=== PATIENT | male | born 1985 | race Caucasian/White ===

== ENCOUNTER 2021-03-23 06:32 | Day surgery (SDC) | payer OTHER, SELFPAY ==
[2021-03-11 08:18] VITALS: BMI 30.4
[2021-03-23] VITALS (10 sets, daily range): BP systolic 115–158; BP diastolic 39–80; PULSE 51–78; RESP 9–16; TEMP 36.2–36.7; O2SAT 92–99; BMI 30.4
--- NOTE | 2021-03-23 | PATH_ITS ---
[facility] Accession Number: [id number] . 01 Material submitted: . gallbladder - GALLBLADDER . 02 Diagnosis: Gallbladder, Cholecystectomy: Gallbladder with cholesterolosis and cholelithiasis. MRV 03/25/2021 1036 Local . 02 Electronically signed: . Linda Bustillo MD, Pathologist NPI- [id number] . 01 Gross description: . The specimen is received in formalin, labeled gallbladder and consists of a 9.5 x 3.5 x 3.0 cm intact gallbladder with a 0.4 cm in diameter cystic duct. The serosa is montes de oca-green and smooth. Opening reveals green viscous bile with multiple back bosselated choleliths ranging from 0.1-1.3 cm. The mucosa is green and velvety, and the wall thickness measures 0.1 cm. Meter Calibrator sections are submitted, to include the en face cystic duct margin (blue) in cassette A1. ([id number]) /MRV 03/24/2021 1251 Local . 02 Pathologist provided ICD-10: K80.70 . 02 CPT . 670939 Performed at: 01 [facility] [address] [facility], [place], [place] [id number] MD William Gomez MD Phone: [phone] Performed at: 02 [facility] [address] [place], [place] [id number] MD Luba Arguelles MD Phone: [phone]
--- NOTE | 2021-03-23 | DI.RAD.S_ITS ---
PROCEDURE: XR CHOLANGIOGRAM OPERATIVE INDICATIONS: CHOLECYSTECTOMY COMPARISON: None. FINDINGS: Biliary ducts: The surgeon injected contrast into the biliary ducts after cannulation of the cystic duct stump. Visualized intra- and extrahepatic bile ducts are normal in caliber, without strictures. Multiple intraluminal filling defects noted which could represent injected air bubbles or choledocholithiasis. No evidence for iatrogenic ductal injury. Duodenum: Contrast flows promptly through the sphincter of Oddi into the duodenum, which appears normal in caliber. IMPRESSION: Multiple small filling defects in the common bile duct which could represent injected air bubbles or choledocholithiasis. Dictated by: Ira Sterling MD, PhD on 03/24/2021 at 13:20 Approved by: Ira Sterling MD, PhD on 03/24/2021 at 13:21
[2021-03-23] MEDS: LACTATED RINGERS 1,000 ML 42 ML IV (07:30)
--- NOTE | 2021-03-23 07:31 | PM.PREOP ---
Pre-operative Note COVID-19 COVID-19 status: Negative Result date/Date tested (Pos, Neg/Pending): 03/23/21 Interval Note History & Physical reviewed/Exam performed by Physician: Yes Changes to H&P: No ASA Class (for procedural sedation): II
[2021-03-23 08:00] LABS: COVID19 -Nasal RAPID Negative (Negative)
[2021-03-23] MEDS: CEFAZOLIN 2 GM/20 ML SYRINGE IV (08:28)
--- NOTE | 2021-03-23 08:35 | SUR.OPER ---
Supine on padded OR bed, head on pillow, arms padded and tucked at sides, legs uncrossed, safety belt at thigh, tape over blanket over lower legs .
[2021-03-23] MEDS: BUPIVACAINE 0.5% (PF) VIAL 30 ML INJ (08:43)
[2021-03-23] MEDS: LIDOCAINE 1% W/EPI 20 ML INJ (08:44)
[2021-03-23] MEDS: IOPAMIDOL 15 ML VIAL INJ (09:11)
[2021-03-23] MEDS: LACTATED RINGERS 1,000 ML 125 ML IV (09:39)
--- NOTE | 2021-03-23 09:56 | PM.OP.1 ---
Operative Date/Time/Diagnoses Date of procedure: 03/23/21 Time of procedure: 09:56 Pre-op diagnosis: Gallstones Post-op diagnosis: same Procedure & Clinicians Procedure: Laparoscopic cholecystectomy with intraoperative cholangiogram Same procedure as scheduled: Yes Indications: Gallstones Surgeon: Piyush Huston Click Yes if Unassisted: Yes Anesthesia Type: General Operative Notes Estimated Blood Loss (mL): 25 Blood products transfused: none Procedure in detail: The patient was given preoperative antibiotic. The patient was brought to the operating room, placed on the table in the supine position. General endotracheal anesthesia was induced. The abdomen was prepped and draped. A time-out was performed. We made a 1 cm infraumbilical incision. We dissected down to the base of the umbilical stalk using cautery. We grasped the umbilical stalk with a Tierra clamp to elevate the abdominal wall. We scored the fascia in the midline with cautery 1 cm. We pierced the peritoneum with a Peon clamp. The Eva port was placed and the abdomen was insufflated to 15 mmHg. A 12 mm 30 degree laparoscopic was inserted. There was no evidence of any injury from the entry. Next, we placed 5 mm ports in the subxiphoid position and right upper quadrant at the midclavicular line and anterior axillary line. Patient was then positioned in reverse Trendelenburg and the table was tilted to the left. The gallbladder was grasped at the dome and retracted cephalad. There were some adhesions of mesenteric tissue to the right liver which were carefully dissected with cautery to allow full retraction of the gallbladder. We then dissected the cystic structures with a combination of hook cautery and blunt dissection. We obtained a critical view. We then performed a cholangiogram with the Sosa port using a ureteral catheter. One of the syringes became disconnected during the cholangiogram allowing some air bubbles into the system. We performed a cholangiogram which showed the expected anatomy with good flow of contrast into the duodenum and up to the hepatic bifurcation. The air bubbles were visible and remained in the common duct despite flushing with 15 mL of saline and repeating the cholangiogram. We then removed the cholangiocatheter. We placed hemoclips on the cystic duct and artery and divided the cystic duct and artery sharply between the clips. The gallbladder was then dissected off the liver and placed in a specimen retrieval bag. We irrigated the right upper quadrant and all the aspirate returned clear. We then removed the 5 mm ports under direct vision we removed the Eva port. We then injected some local into the fascia and closed the fascia with 2 interrupted 0 Vicryl sutures. The skin incisions were closed with 4 Monocryl and Steri-Strips were applied. Band-Aids were applied over the Steri-Strips. Specimen: Gallbladder Post-operative Condition: stable Disposition: PACU
[2021-03-23] MEDS: OXYCODONE IR 5 MG TABLET PO ×2 (10:15→10:26)
[2021-03-23] MEDS: fentaNYL 100 MCG/2 ML INJ IV (10:42)
--- NOTE | 2021-03-31 16:52 | PM.HP.1 ---
History of Present Illness History of Present Illness Date Patient Seen: 03/23/21 Time Patient Seen: 07:45 Chief complaint: SDC Narrative: The patient is a 35-year-old man with gallstones. He has been to the emergency department twice for biliary colic. He reported upper abdominal pain. Patient History Medical History (Updated 03/11/21 @ 08:21 by Ashley Bowman RN) Eczema Gallstones Headache, migraine Surgical History (Updated 03/11/21 @ 08:21 by Ashley Bowman RN) H/O left wrist surgery (2008) H/O vasectomy H/O wisdom tooth extraction (2003) Hx of appendectomy (1995) Hx of tonsillectomy (1988) Family & Social History Family History (Updated 02/02/21 @ 14:21 by Lily Ray RN) Father Cancer Grandfather Diabetes mellitus Social History: household members spouse,children Tobacco & Substance use: Smoking Status Former smoker alcohol intake never Substance Use Type does not use Meds Home Medications and Allergies Home Medications Medication Instructions Recorded Confirmed Type ascorbic acid (vitamin C) 1,000 mg 1,000 mg PO DAILY 03/11/21 03/23/21 History tablet (Vitamin C) glucosamine-chondroitin 250 mg-200 2 tab PO DAILY 03/11/21 03/23/21 History mg tablet (Osteo Bi-Flex) omega 5-mzu-fai-fish oil 1,000 mg 2 cap PO DAILY 03/11/21 03/23/21 History (120 mg-180 mg) capsule (Fish Oil) omeprazole 40 mg capsule,delayed 40 mg PO DAILY 03/11/21 03/23/21 History release hydrocodone 5 mg-acetaminophen 325 1 tab PO Q6H PRN #8 tab 03/23/21 Rx mg tablet oxycodone 5 mg tablet 5 mg PO Q8H PRN #8 tab 03/23/21 Rx Allergies Allergy/AdvReac Type Severity Reaction Status Date / Time No Known Drug Allergies Allergy Verified 03/23/21 07:06 Exam Vital Signs (past 8 hours): Oxygen Delivery Method Room Air Oxygen Flow Rate 3 Const General: healthy appearing HENMT Head: normal to inspection Eyes General: appearance normal, both eyes and all related structures Resp Effort & Inspection: normal respiratory effort GI Palpation: soft and No hernia Assessment & Plan Assessment and plan (1) Gallstones: Status: Acute Plan Reviewed the risks and benefits of laparoscopic cholecystectomy and he would like to proceed. Time Spent With Patient Critical Care time: I spent a total of [] minutes of critical care time on this patient's care today; this time is exclusive of procedural time.
== END 2021-03-23 11:19 | disposition home or self-care (01) ==
PROVIDERS: Referring Provider Surgery; Visit Provider Surgery
PROC: 0FT44ZZ Resection of Gallbladder, Percutaneous Endoscopic Approach (ICD-10-PCS; CPT 47562; principal; 2021-03-23 07:45)
DX: K80.20 Calculus of gallbladder without cholecystitis without obstruction (principal); Z20.822 Contact with and (suspected) exposure to COVID-19; K21.9 Gastro-esophageal reflux disease without esophagitis
CPT/HCPCS: 47563; 74018; 74300; 76000; 87635; J0690; J1100; J2405; J2704; J3010

== ENCOUNTER → 2022-03-25 10:51 | Outpatient (CLI) | payer OTHER, SELFPAY ==
--- NOTE | 2022-03-25 | DI.RAD.S_ITS ---
PROCEDURE: FL SHOULDER INJECTION MR/CT RT INDICATIONS: PAIN IN RIGHT SHOULDER COMPARISON: [facility], MR, MR SHOULDER RT W CON, 03/25/2022, 11:35. TECHNIQUE: The indications, alternatives, benefits, risks, and complications of the procedure were explained to the patient. Written informed consent was obtained and placed in the chart. The shoulder was examined fluoroscopically and a site for needle placement chosen for entry into the glenohumeral joint from an anterior approach. The skin was prepped and draped in a sterile fashion, and 1% lidocaine infiltrated from skin down to joint capsule. A spinal needle was inserted into the glenohumeral joint, and a small amount of iodinated contrast media injected to confirm intra-articular placement of the needle tip. This was followed by approximately 12 mL dilute solution of a gadolinium containing MR contrast agent. The needle was removed and a dressing was applied. The patient was given postprocedural instructions and sent to the MR suite for MR imaging. FINDINGS: A single fluoroscopic spot image demonstrates intra-articular location of injected iodinated contrast. IMPRESSION: Successful fluoroscopically guided administration of dilute Gadolinium solution into the shoulder joint for MR arthrogram. Dictated by: Mayur Hdz M.D. on 03/25/2022 at 14:57 Approved by: Mayur Hdz M.D. on 03/25/2022 at 14:57
--- NOTE | 2022-03-25 | DI.MRI.S_ITS ---
PROCEDURE: MR SHOULDER RT W CON INDICATIONS: PAIN IN RIGHT SHOULDER TECHNIQUE: After the administration of 12 mL of dilute intra-articular Gadolinium contrast, oblique coronal T1 and T2 spin echo with fat saturation, oblique sagittal T1 spin echo with and without fat saturation, oblique sagittal T2 fast spin echo with fat saturation, axial T1 spin echo with fat saturation through the shoulder. COMPARISON: None. FINDINGS: Image quality: Excellent. Rotator cuff: The supraspinatus, infraspinatus, and subscapularis tendons appear intact throughout. No rotator cuff muscle atrophy on sagittal images. Bones and bursae: No bone marrow contusions or fractures. Moderate acromioclavicular joint degeneration. The acromion demonstrates conventional anatomy, without an os acromiale. Capsule and soft tissues: The labrum and glenohumeral ligaments appear intact. The long head of the biceps tendon demonstrates normal location and morphology. The rotator interval appears normal, without fibrosis. The coracohumeral ligament is of normal thickness. No intra-articular bodies. IMPRESSION: 1. Mild supraspinatus tendinosis. 2. Moderate acromioclavicular joint degeneration. 3. No labral tear. Dictated by: Mayur Hdz M.D. on 03/25/2022 at 14:02 Approved by: Mayur Hdz M.D. on 03/25/2022 at 16:49
== END ==
DX: M19.011 Primary osteoarthritis, right shoulder (principal); M25.511 Pain in right shoulder
CPT/HCPCS: 23350; 73222; 77002

== ENCOUNTER → 2022-04-01 16:15 | Outpatient (CLI) | payer OTHER, SELFPAY ==
--- NOTE | 2022-04-01 16:16 | DI.MRI.S_ITS ---
PROCEDURE: MR LUMBAR SPINE WO CON INDICATIONS: Radiculopathy, lumbar region TECHNIQUE: Noncontrast sagittal T1 spin echo and T2 fast echo, sagittal STIR, and T2 fast spin echo through the lumbar spine. In cases with scoliosis, additional coronal T2 fast spin echo may be performed. COMPARISON: [facility], CR, XR LUMBAR SPINE WITH OBLIQUES PLUS FLEXION EXTENSION, 03/23/2022, 9:07. FINDINGS: Image quality: Excellent. Alignment and Curvature: There is normal bony alignment. Rudimentary S1-S2 disc. A in Bone Marrow: Marrow is of normal overall signal. No acute vertebral body compression fractures. Spinal Cord: Conus medullaris terminates at the L1-L2 level. Visualized cord demonstrates normal signal and size. Paraspinous Soft Tissues: No paravertebral masses. T12-L1: Normal appearance. L1-L2: Normal appearance. L2-L3: Normal appearance. L3-L4: Normal appearance. L4-L5: Normal appearance. L5-S1: Mild disc bulge. Mild facet hypertrophy. Right paracentral annulus tear subjacent to the right S1 nerve root. No canal stenosis or foraminal stenosis. IMPRESSION: 1. No canal stenosis or foraminal stenosis. 2. At L5-S1, there is a right lateral recess annulus tear subjacent to the right S1 nerve root. This can potentially result in a right S1 radiculitis. Recommend clinical correlation. 3. Mild facet hypertrophy at L5-S1. Dictated by: Hitesh Recinos M.D. on 04/02/2022 at 8:06 Approved by: Hitesh Recinos M.D. on 04/02/2022 at 8:11
== END ==
PROVIDERS: Referring Provider Physical Medicine & Rehabilitation Pain Medicine; Visit Provider Physical Medicine & Rehabilitation Pain Medicine
DX: M54.16 Radiculopathy, lumbar region (principal)
CPT/HCPCS: 72148